=== PATIENT | female | born 1975 | race African-American/Black ===

== ENCOUNTER 2017-06-01 22:31 | Emergency (ER) | payer SELFPAY ==
[2017-06-01 23:14] LABS: #Basophils 0.1 thou/uL (0.0-0.2); #Eosinphils 0.2 thou/uL (0.0-0.7); #Lymphocytes 2.1 thou/uL (1.20-3.40); #Monocytes 0.5 thou/uL (0.11-0.59); #Neutrophils 1.9 thou/uL (1.40-6.50); %Basophils 1.7 % (0.0-1.0); %Eosinophils 3.4 % (0.0-10.0); %Lymphocytes 43.9 % (21.0-51.0); %Monocytes 11.1 % (0.0-10.0); %Neutrophils 39.9 % (42.0-75.0); Hemoglobin 12.7 g/dL (12.0-16.0); Mean Corpuscular HGB CONC 33.9 g/dL (32.0-36.0); Mean Corpuscular Hemoglobin 34.4 pg (27.0-31.0); Mean Platelet Volume 7.7 fL (7.4-10.4); Platelet Count 162 thou/uL (130-400); RBC Distribution Width 11.5 % (11.5-14.5); Red Blood Cell (RBC) Count 3.68 mill/uL (4.20-5.40); White Blood Cell (WBC) Count 4.7 thou/uL (4.8-10.8)
[2017-06-01 23:35] LABS: ALT (SGPT) 7 U/L (8-55); AST (SGOT) 8 U/L (5-34); Albumin 3.9 g/dL (3.5-5.0); Alkaline Phosphatase 50 U/L (40-150); Anion Gap 14 mmol/L (10-20); BUN (Urea Nitrogen) 11 mg/dL (7.0-18.7); Bilirubin, Total 0.2 mg/dL (0.2-1.2); Calc. Creatinine Clearance 0 mL/min (70-130); Calcium 10.3 mg/dL (7.8-10.44); Carbon Dioxide 19 mmol/L (22-29); Chloride 109 mmol/L (98-107); Estimated GFR-MDRD Greater than 90; Globulin 4.1 g/dL (2.4-3.5); Glucose 101 mg/dL (70-105); Potassium 3.6 mmol/L (3.5-5.1); Sodium 138 mmol/L (136-145)
[2017-06-01] MEDS ORDERED: Lorazepam 2 MG/ML VIAL ONE (23:57)
--- NOTE | 2017-06-02 00:13 | CT ---
NONCONTRAST CT HEAD 06/01/17 HISTORY: Three to four seizures at home. Trauma. COMPARISON: 10/25/16. FINDINGS: A ventriculoperitoneal shunt catheter again enters via a right parietal approach and courses across t he midline with the tip overlying the most lateral aspect of the body left lateral ventricle. Ventric ular system is stable in size. There is no evidence of a hemorrhage, acute infarction, mass effect, o r midline shift. Minimal mucosal thickening is seen in the paranasal sinuses. Mastoid air cells are c lear. No other interval change. IMPRESSION: 1. No acute intracranial abnormality is demonstrated. 2. Ventriculoperitoneal shunt catheter is stable in position. Stable size of the ventricular sys tem which is mildly prominent without overt hydrocephalus. POS: [facility]
[2017-06-02] MEDS ORDERED: Acetaminophen 500 MG TAB ONE (00:53)
--- NOTE | 2017-06-02 07:06 | CT ---
NONCONTRAST CT CERVICAL SPINE: Date: 06/01/17 HISTORY: Trauma. 3-4 seizures at home. TECHNIQUE: Contiguous axial CT images are obtained through the cervical spine from the skull base to the T1-2 le raudel. Sagittal and coronal reformatted images are provided. FINDINGS: There are defects involving both the anterior, as well as posterior, archest of the C1 vertebral body , which are likely developmental in origin. This is seen on prior CT scan of the head on 01/02/15. No acute fracture or subluxation is seen involving the cervical spine. The prevertebral soft tissues are within normal limits. Lung apices are clear. IMPRESSION: 1. No acute osseous abnormality involving the cervical spine. POS: [facility]
== END 2017-06-02 06:12 | disposition home or self-care (01) ==
LOC: ERS 22:31
DX: R56.9 Unspecified convulsions (principal); I10 Essential (primary) hypertension; F17.210 Nicotine dependence, cigarettes, uncomplicated; W19.XXXA Unspecified fall, initial encounter
CPT/HCPCS: 36415; 70450; 72125; 80053; 85025; 93005; 94760; 96374; J2060

== ENCOUNTER 2017-06-27 16:00 | Outpatient (CLI) | payer OTHER | END 2017-06-27 16:01 | disposition home or self-care (01) | LOC: BICRAD 16:00 | PROVIDERS: ATTEND Internal Medicine | DX: Z02.71 Encounter for disability determination (principal); M47.896 Other spondylosis, lumbar region | CPT/HCPCS: 72100 ==

== ENCOUNTER 2018-09-02 23:54 | Observation (INO) | payer OTHER, SELFPAY ==
[2018-09-03] MEDS ORDERED: levETIRAcetam 500 MG/100 ML PREMIX BAG ONE (00:50)
[2018-09-03 00:54] LABS: Mean Corpuscular Hemoglobin 32.9 pg (27.0-31.0); Mean Corpuscular Volume 99.7 fL (78.0-98.0); Mean Platelet Volume 8.2 fL (7.4-10.4); Platelet Count 153 thou/uL (130-400); RBC Distribution Width 11.1 % (11.5-14.5); Red Blood Cell (RBC) Count 3.97 mill/uL (4.20-5.40); White Blood Cell (WBC) Count 4.1 thou/uL (4.8-10.8)
[2018-09-03 01:05] LABS: ALT (SGPT) 14 U/L (8-55); AST (SGOT) 15 U/L (5-34); Albumin 4.2 g/dL (3.5-5.0); Alkaline Phosphatase 61 U/L (40-150); Anion Gap 13 mmol/L (10-20); BUN (Urea Nitrogen) 19 mg/dL (7.0-18.7); Bilirubin, Total 0.2 mg/dL (0.2-1.2); Calc. Creatinine Clearance 0 mL/min (70-130); Calcium 9.9 mg/dL (7.8-10.44); Carbon Dioxide 24 mmol/L (22-29); Chloride 106 mmol/L (98-107); Estimated GFR-MDRD Greater than 90; Globulin 4.4 g/dL (2.4-3.5); Glucose 110 mg/dL (70-105); Potassium 3.5 mmol/L (3.5-5.1); Protein, Total 8.6 g/dL (6.0-8.3); Sodium 139 mmol/L (136-145)
[2018-09-03 01:09] LABS: Band 1 % (5-11); Lymphocytes 46 % (21-51); MDiff Complete? YES; Monocytes 6 % (0-10); Neutrophil 47 % (42-75); Platelet Morphology Comment Appears Adequate; RBC Morphology Normal
[2018-09-03] MEDS ORDERED: Acetaminophen 325 MG TAB ONE (01:21)
[2018-09-03] MEDS ORDERED: Lorazepam 2 MG/ML VIAL SLOW IVP PRN (06:22)
[2018-09-03] MEDS ORDERED: tiZANidine HCl 4 MG TAB PO PRN (06:23)
[2018-09-03] MEDS ORDERED: Ondansetron PF 4 MG/2 ML Vial IVP PRN (06:24)
[2018-09-03] MEDS ORDERED: Calcium Carbonate 500 MG ChewTAB PO PRN (06:24)
[2018-09-03] MEDS ORDERED: Ondansetron ODT 4 MG TAB PO PRN (06:24)
[2018-09-03] MEDS ORDERED: Sodium Chloride 0.9% 1,000 ML IV SCH (06:30)
[2018-09-03 06:36] VITALS: BMI 31.8
--- NOTE | 2018-09-03 07:08 | HP ---
PRIMARY CARE PHYSICIAN: None. CHIEF COMPLAINT: Seizures. History obtained from the patient. No family at the bedside. HISTORY OF PRESENT ILLNESS: The patient is a 43-year-old female with seizure disorder, presented to the hospital by EMS after an episode of seizure. This was witnessed by her . It lasted for approximately 2 minutes. She stayed confuse for up to 15 minutes or so after the seizure. There was no tongue biting or incontinence reported. The seizure lasted for approximately 2 minutes. She had a total of three seizures in a row tonight. Please note that the patient used to be on Keppra in the past and is out of all of her medications over the last couple of months. She has mild headache without any photophobia, phonophobia, or other focal deficit. She does have some tingling in her right upper extremity. She denies any joint pains at this time. PAST MEDICAL HISTORY: 1. Seizure disorder. 2. Chiari malformation. 3. Syringomyelia. 4. Hydrocephalus, status post DRIER AND PULVERIZER TENDER shunt. 5. History of baclofen pump with subsequent removal. 6. Seizure Disorder. 7. Peripheral neuropathy. PAST SURGICAL HISTORY: 1. DRIER AND PULVERIZER TENDER shunt. 2. Hernia repair. 3. Baclofen pump, status post removal. 4. Hysterectomy. 5. Back surgery. ALLERGIES: THE PATIENT IS ALLERGIC TO MORPHINE AND PENICILLIN. MEDICATIONS: Current home medications reviewed with the patient and none. The patient used to be on, 1. Gabapentin. 2. Tizanidine. 3. Keppra in the past. She is out of all of her medications for last few months. SOCIAL HISTORY: The patient currently lives at home, smokes up to half pack a day. Denies any alcohol or drug use. FAMILY HISTORY: Positive for hypertension and heart disease. REVIEW OF SYSTEMS: All other review of systems were reviewed and were found negative. No fever or chills reported. PHYSICAL EXAMINATION: VITAL SIGNS: Temperature 98.9, respiration 20, pulse rate of 96, blood pressure of 112/92 with O2 saturation 100% on room air. GENERAL: A 43-year-old female in no apparent distress. HEENT: Head, atraumatic and normocephalic. Sclerae anicteric. Moist mucous membrane. No oral lesion. No tongue biting. NECK: Supple. No JVD. No neck stiffness. LUNGS: Clear to auscultation bilaterally. No wheezing, rales, or rhonchi. HEART: S1, S2 present. Regular rate and rhythm. No rubs or gallops appreciated. ABDOMEN: Soft, nontender. Bowel sounds present. EXTREMITIES: No edema or calf tenderness. NEUROLOGY: Cranial nerves 2 through 12 are normal on examination. Power was 5/5 in all extremities. Sensation to touch was slightly diminished in the right upper extremity. Reflexes were equivocal. [id number] test was normal. PSYCHIATRY: Alert, awake, and oriented x3. SKIN: Warm and dry. LYMPH NODES: No palpable lymph nodes in the neck. PERIPHERAL VASCULAR: Radial pulses palpable bilaterally. MUSCULOSKELETAL: No joint swelling or tenderness. IMAGING STUDIES: CT scan of the brain by my review was negative for acute findings. EKG by my review showed sinus rhythm without significant ST-T wave changes. LABORATORY FINDINGS: WBC was 4.1, hemoglobin 13, hematocrit 39.6, and platelet of 153. Chemistry showed sodium 139, potassium 3.5, chloride 106, bicarb 24, BUN 19, and creatinine 0.82. LFTs in normal range. Shuntogram has been done report is pending at this time. IMPRESSION: 1. Recurrent seizures, probably secondary to medication noncompliance. 2. History of seizure disorder. 3. Peripheral neuropathy. 4. Hydrocephalus, status post DRIER AND PULVERIZER TENDER shunt. 5. Chiari malformation with syringomyelia. 6. Macrocytosis. 7. Medication noncompliance. 8. Chronic low back pain. PLAN: The patient will be monitored as 23-hour observation. We will start her on Keppra 500 mg twice a day. Gabapentin will be re-initiated at low dose. The patient was counseled on medication noncompliance. Gentle IV hydration. The patient was advised not to drive until cleared by neurologist. Job ID: [id number]
[2018-09-03] MEDS ORDERED: Gabapentin 300 MG CAP PO SCH ×2 (09:00→16:00)
--- NOTE | 2018-09-03 09:00 | RAD ---
SHUNTOGRAM RADIOGRAPH SERIES 5 VIEWS: Frontal view calvarium, lateral view calvarium, frontal view chest, frontal view abdomen, lateral vie w neck submitted CLINICAL INDICATION: Altered mental status, seizure. FINDINGS: Right posterior parietal approach ventricular catheter is demonstrated, which traverses the neck, rig ht chest and right abdomen. No discrete area of shunt discontinuity is identified. A portion of the catheter at the base of skull/upper neck is obscured from visualization on the frontal view, although is grossly intact by lateral projection. There is additional catheter tubing of the left abdomen with a port site. IMPRESSION: No obvious shunt discontinuity evident radiographically. Transcribed Date/Time: 09/03/2018 10:03 AM
[2018-09-03] MEDS: Acetaminophen 325 MG TAB PO PRN ×2 (09:11→15:12)
--- NOTE | 2018-09-03 15:30 | CON ---
DATE OF CONSULTATION: 09/03/2018 CONSULTING PHYSICIAN: Hospitalist Service. IMPRESSION: 1. Recurrent seizures. 2. Noncompliance. PLAN: 1. Restart Keppra 500 mg twice a day. 2. The patient will be discharged to home. HISTORY OF PRESENT ILLNESS: Ms. Peterson is a 43-year-old female with a history of epilepsy, dating back to childhood. She had a ventricular shunt placed several years ago. She has seen physicians off and on for treatment of this. The last medication she took was Keppra. She has been off her medication for a year. She started having a headache yesterday. Her witnessed her to have seizures that were occurring [id number]. She did not regain awareness until she was in the emergency room. She was restarted on Keppra. The remainder of the night was uneventful. Her CT of the brain showed ventricular shunt with normal ventricular size and no acute abnormalities. CBC and chemistry panel were unremarkable. PAST MEDICAL HISTORY: Otherwise negative. ALLERGIES: MORPHINE, TAPE, AND PENICILLIN. SOCIAL HISTORY: No illicit drug use. FAMILY HISTORY: Noncontributory. MEDICATION LIST: None. REVIEW OF SYSTEMS: Ten-system review of systems is otherwise negative. PHYSICAL EXAMINATION: VITAL SIGNS: Blood pressure 107/55, pulse 78, respirations 18, and temperature 98.2. HEENT: Pupils equal and reactive. Conjunctivae clear. Oropharynx clear. NECK: Supple. EXTREMITIES: No cyanosis, clubbing, or edema. NEUROLOGIC: She is alert and appropriate. Her speech is fluent and clear. Her exam is nonfocal. No abnormal movements were seen. IMAGING: Reviewed. SUMMARY: This is a middle-aged woman with a long history of seizures. She has a relatively high threshold apparently and has been able to go without medications for months. I have discussed the pros and cons of treatment. I would be happy to follow up with her as an outpatient. She appears stable for discharge. Job ID: [id number]
--- NOTE | 2018-09-03 15:56 | PDOC.EVN ---
Event Note - Event Note Event Note: pt seen and examined. Feels better and care discussed regarding non compliance. Pt lost insurance and stopped keppra. Continued to take gabapentin and zanaflex discussed w Neurology and was cleared for DC on recheck now, she had an episode of "feeling funny " with headache & some worsening of chr Left sided weakness. Likely migraine. spontaneous resolution of symptoms. will monitor overnight resume gabapentin TID,stop IVF as pt eating and change keppra to PO Pt educated about [employer] website for 6$ keppra at most pharmacies.
[2018-09-03] MEDS ORDERED: Naproxen 500 MG TAB PO SCH (18:00)
[2018-09-03] MEDS ORDERED: SUMAtriptan Succinate 50 MG TAB PO SCH (18:00)
[2018-09-03] MEDS: Gabapentin 300 MG CAP PO SCH (21:27)
[2018-09-03] MEDS: levETIRAcetam 500 MG TAB PO SCH (21:27)
[2018-09-03] MEDS: Ketorolac Tromethamine 30 MG/ML VIAL IVP PRN (23:05)
[2018-09-04] MEDS: Ketorolac Tromethamine 30 MG/ML VIAL IVP PRN (07:40)
[2018-09-04] MEDS: Gabapentin 300 MG CAP PO SCH ×2 (07:43→15:53)
--- NOTE | 2018-09-04 08:37 | CT ---
PRELIMINARY REPORT/[facility]/EMERGENCY AFTER HOURS PROCEDURE: EXAM: CT Head Without Contrast EXAM DATE/TIME: 09/03/2018 12:44 AM CLINICAL HISTORY: 43 years old, female; Signs and symptoms; Prior surgery; Patient HX: Er 2. F43 with a HX of seizures since childhood presents to ED via EMS S/P seizure, onset just prior to EMS arrival. PT C/O headache. Patient stopped taking her daily seizure medication a couple of months ago. Pt's seizure was witnessed, lasted 2 minutes and had a postictal state of about 15 minutes. TECHNIQUE: Imaging protocol: Axial computed tomography images of the head/brain without contrast. COMPARISON: No relevant prior studies available. FINDINGS: Brain: No intracrainal hemorrhage. No midline shift. The brain parenchyma appears normal for age. Ventricles: Ventriculostomy catheter from a posterior right approach with the distal tip in frontal h orn of the left ventricle Bones/joints: Unremarkable. No acute fracture. Sinuses: Visualized sinuses are unremarkable. No acute sinusitis. Mastoid air cells: Visualized mastoid air cells are unremarkable. No mastoid effusion. Soft tissues: Unremarkable. IMPRESSION: No acute intracranial abnormality. Thank you for allowing us to participate in the care of your patient. Dictated and Authenticated by: Jonathan Marquez MD 09/03/2018 1:18 AM Central Time ([place] & [place]) FINAL REPORT FINDINGS/IMPRESSION: Agree with the preliminary interpretation provided above. No acute intracranial abnormalities. POS: [facility]
[2018-09-04] MEDS: levETIRAcetam 500 MG TAB PO SCH (08:45)
[2018-09-04] MEDS ORDERED: SUMAtriptan Succinate 50 MG TAB PO SCH (10:30)
[2018-09-04] MEDS: Acetaminophen 325 MG TAB PO PRN (11:49)
[2018-09-04 15:59] VITALS: BP 107/67; TEMP 99.1
--- NOTE | 2018-09-05 02:22 | DIS ---
DATE OF ADMISSION: 09/03/2018 DATE OF DISCHARGE: 09/04/2018 ALLERGIES: MORPHINE, ADHESIVE TAPE, AND PENICILLIN. CHIEF COMPLAINT: Seizure. FINAL DIAGNOSES: 1. Recurrent seizure in the setting of medication noncompliance with Keppra. 2. Known seizure disorder since childhood. 3. Migraine. 4. History of hydrocephalus, status post ventriculoperitoneal shunt, patent per shuntogram performed this hospitalization. 5. History of Chiari malformation with syringomyelia. PROCEDURES PERFORMED: None. LABORATORY RESULTS: White blood cell count 4.1, hemoglobin 13.0, MCV 99.7, platelets 153. Sodium 139, potassium 3.5, BUN 19, creatinine 0.82, albumin 4.2. AST, ALT, and alkaline phosphatase are all within normal limits. IMAGING RESULTS: Shuntogram performed on September 03 showed no obvious shunt discontinuity, evident radiographically. Brain CT showed no acute intracranial abnormalities. Ventriculostomy catheter noted from a posterior right approach with the distal tip in the frontal horn of the left ventricle. CONSULTATIONS: Dr. Cordero of Neurology. VITAL SIGNS: Blood pressure 107/67, temperature 98.1, pulse 69, O2 sat 97% on room air. HOSPITAL COURSE: The patient is a 43-year-old female with past medical history significant for known seizure disorder, history of hydrocephalus, status post DRAWER IN PLAIN LOOM shunt, migraines, and history of Chiari malformation, who presented to the hospital after suffering a seizure at home. The seizure activity was witnessed by her . There was no report of loss of bladder function or tongue biting. The patient has been off her Keppra for months to a year according to the patient. Her Keppra was restarted. She was seen in consultation with Neurology, who recommended reinstating Keppra, and she was cleared for discharge. The patient did have an occurrence of migraine, that did resolve with sumatriptan. She ambulated with walking program, and is at her baseline steadiness as far as gait goes. The patient denies any chest pain or shortness of breath. She has had no nausea or vomiting. She has tolerated her diet. Upon my interview this afternoon, her headache has resolved. Her brain CT was negative. She has had no further seizure activity since her admission. PHYSICAL EXAMINATION: GENERAL: The patient is a moderately obese, female, sitting up in a chair, in no acute distress. HEENT: Atraumatic and normocephalic. Eyes movement intact. NECK: Supple. No lymphadenopathy. No JVD. Trachea is midline. RESPIRATORY: Regular respiratory rate and pattern. Clear to auscultation bilaterally. CV: S1 and S2. Regular rate and rhythm. No appreciable murmurs, rubs or gallops. GI: Soft and nontender. Normal bowel sounds. PERIPHERAL VASCULAR: No lower extremity pitting edema. +2 DP pulses bilaterally. MUSCULOSKELETAL: No joint effusion or swelling. NEUROLOGIC: The patient is awake and alert. Cranial nerves II through XII intact. The patient has no focal deficits. SKIN: Warm and dry. No skin discolorations or rashes. CONDITION AT DISCHARGE: Stable. DISCHARGE MEDICATIONS: Prescriptions were sent for the patient to restart all of her home medications which include, 1. Tizanidine 4 mg capsule one capsule p.o. b.i.d. p.r.n. 2. Sumatriptan 25 mg tablet one tablet p.o. p.r.n. migraine, may repeat q.2 hours x1 dose. 3. Keppra 500 mg tablet one tablet p.o. b.i.d. 4. Gabapentin 300 mg capsule one capsule p.o. t.i.d. DISCHARGE DISPOSITION: Home. PLAN: The patient will follow up and get re-established with her PCP. She will follow up with Neurology as well. The patient has been counseled extensively on the importance of medication compliance. She understands and will be discharged home today in good condition. Job ID: [id number]
== END 2018-09-04 21:20 | disposition home or self-care (01) ==
LOC: ERS 23:54 → 2SE 09-03 05:41
PROVIDERS: ADMIT Internal Medicine; ATTEND Internal Medicine
DX: G40.909 Epilepsy, unspecified, not intractable, without status epilepticus (principal); G43.909 Migraine, unspecified, not intractable, without status migrainosus; Q07.02 Arnold-Chiari syndrome with hydrocephalus; G95.0 Syringomyelia and syringobulbia; G62.9 Polyneuropathy, unspecified; F17.210 Nicotine dependence, cigarettes, uncomplicated; G89.29 Other chronic pain; M54.5 Low back pain; E66.9 Obesity, unspecified; Z68.31 Body mass index [BMI] 31.0-31.9, adult; Z79.899 Other long term (current) drug therapy; Z88.0 Allergy status to penicillin; Z88.5 Allergy status to narcotic agent; Z91.048 Other nonmedicinal substance allergy status; Z91.14 Patient's other noncompliance with medication regimen; Z98.2 Presence of cerebrospinal fluid drainage device
CPT/HCPCS: 36416; 70450; 75809; 80053; 83735; 85025; 90471; 90732; 93005; 96365; 96366; 96375; 96376; G0009; G0378; J1885; J1953

== ENCOUNTER 2024-12-11 12:34 | Emergency (ER) | payer OTHER, MEDICAID ==
[2024-12-11] MEDS ORDERED: Ondansetron PF 4 MG/2 ML Vial ONE (13:04)
[2024-12-11] MEDS ORDERED: levETIRAcetam 500 MG (5 mL) VIAL ONE (13:04)
[2024-12-11 13:54] LABS: Hematocrit 31.4 % (36.0-47.0); Hemoglobin 10.4 g/dL (12.0-16.0); Mean Corpuscular Hemoglobin 32.2 pg (27.0-31.0); Mean Corpuscular Volume 97.2 fL (78.0-98.0); Platelet Count 240 10x3/uL (130-400); Red Blood Cell (RBC) Count 3.23 mill/uL (4.20-5.40); White Blood Cell (WBC) Count 4.59 10x3/uL (4.8-10.8)
[2024-12-11 14:09] LABS: Acetaminophen Less than 10 mcg/mL (Less than 10); Salicylate Less than 8.0 mg/dL (Less than 8.0)
[2024-12-11 14:10] LABS: ALT (SGPT) 12 U/L (Less than 34); AST (SGOT) 26 U/L (11-34); Albumin 3.5 g/dL (3.1-4.5); Alkaline Phosphatase 74 U/L (40-110); Anion Gap 12 mmol/L (10-20); BUN (Urea Nitrogen) 25 mg/dL (7.0-18.7); Bilirubin, Total 0.1 mg/dL (0.3-1.2); Calc. Creatinine Clearance 0 mL/min (70-130); Calcium 9.1 mg/dL (7.8-10.44); Carbon Dioxide 21 mmol/L (22-29); Chloride 110 mmol/L (98-107); Globulin 4.5 g/dL (2.4-3.5); Glucose 78 mg/dL (70-105); Potassium 4.4 mmol/L (3.5-5.1); Sodium 139 mmol/L (136-145)
[2024-12-11 14:24] LABS: Platelet Adequacy Comment Platelets Normal; Polychromasia SLIGHT = 2-3 cells HPF (0-2)
== END 2024-12-11 17:51 | disposition home or self-care (01) ==
LOC: ERS 12:34
DX: F17.210 Nicotine dependence, cigarettes, uncomplicated (principal)
CPT/HCPCS: 70450; 71045; 80053; 80177; 80307; 85025; 93005; 94760; J1953; J2405; J3010; 96374; 96375